=== PATIENT | male | born 2000 | race African-American/Black ===

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

== ENCOUNTER 2023-12-06 02:01 | Emergency (ER) | payer OTHER ==
[~2023-12-06] VITALS: Ht 190.5 cm; Wt 90.9 kg
[~2023-12-06 02:01] MED LIST: AMOXICILLIN 8751 TAB PO
[2023-12-06 02:07] VITALS: TEMP 98.2
[2023-12-06 02:42] LABS: BASO # 0.1 K/mm3 (0.0-0.2); BASO % 0.3 % (0.0-2.0); EOS # 0.3 K/mm3 (0.0-0.7); GRAN # 8.5 K/mm3 (1.4-6.5); GRAN % 58.6 % (42.2-75.2); HEMATOCRIT 44.4 % (42.0-52.0); HEMOGLOBIN 14.6 g/dl (13.5-18.0); LYMPH # 4.7 K/mm3 (1.2-3.4); LYMPH % 32.1 % (20.0-51.0); MEAN CELL VOLUME 97 fl (80.0-100.0); MEAN CORPUSCULAR HEMOGLOBIN 32 pg (27-31); MEAN CORPUSCULAR HGB CONC 33 g/dl (33.0-37.0); MEAN PLATELET VOLUME 10.1 fl (7.4-10.4); MONO % 6.7 % (1.7-9.3); PLATELET COUNT 243 K/mm3 (130-400); RED BLOOD COUNT 4.57 M/mm3 (4.20-5.60); REDCELL DISTRIBUTION WIDTH-CV 13.9 % (11.5-14.5)
[2023-12-06] MEDS ORDERED: Ketorolac 30 MG/ML VIAL IV ONE (02:45)
[2023-12-06] MEDS ORDERED: ALPRAZolam 0.5 MG TAB PO ONE (02:45)
[2023-12-06 02:52] LABS: ANION GAP 13 mmol/L (7-16); BLOOD UREA NITROGEN 13 mg/dL (9-21); CALCIUM 9.6 mg/dL (8.4-10.2); CHLORIDE 108 mEq/L (98-107); CREATININE, serum 0.96 mg/dL (0.72-1.25); GLUCOSE 102 mg/dL (70-99); POTASSIUM 3.8 mEq/L (3.5-4.5); SODIUM 142 mEq/L (136-145)
[2023-12-06 03:02] LABS: ALCOHOL(ethanol),MEDICAL < 10 mg/dL (0-10)
[2023-12-06 03:06] LABS: TROPONIN-I < 0.010 ng/mL (0.00-0.033)
[2023-12-06 03:51] VITALS: BP 150/94; PULSE 80
== END 2023-12-06 03:52 | disposition home or self-care (01) ==
LOC: COL.ER 02:01
PROVIDERS: Internal Medicine
DX: F41.0 Panic disorder [episodic paroxysmal anxiety] (principal); F17.210 Nicotine dependence, cigarettes, uncomplicated
CPT/HCPCS: J1885